=== PATIENT | female | born 1965 | race Hispanic/Latino ===

== ENCOUNTER 2017-03-09 06:09 | Emergency (ER) | payer OTHER, SELFPAY | END 2017-03-09 07:08 | disposition home or self-care (01) | LOC: ERS 06:09 | DX: J06.9 Acute upper respiratory infection, unspecified (principal); E11.9 Type 2 diabetes mellitus without complications; I10 Essential (primary) hypertension | CPT/HCPCS: 87081; 87430; 99283 ==

== ENCOUNTER 2018-06-23 06:53 | Observation (INO) | payer BC, OTHER ==
--- NOTE | 2018-06-23 07:45 | RAD ---
PORTABLE CHEST: HISTORY: Cough. FINDINGS: Lung garcia are clear. Heart and mediastinum unremarkable. IMPRESSION: No acute findings. POS: [facility]
[2018-06-23 07:52] LABS: #Lymphocytes 1.8 thou/uL (1.20-3.40); #Monocytes 0.4 thou/uL (0.11-0.59); #Neutrophils 2.8 thou/uL (1.40-6.50); %Eosinophils 0.8 % (0.0-10.0); %Lymphocytes 35.1 % (21.0-51.0); %Monocytes 8.7 % (0.0-10.0); %Neutrophils 54.5 % (42.0-75.0); Hemoglobin 13.1 g/dL (12.0-16.0); Mean Corpuscular HGB CONC 33.2 g/dL (32.0-36.0); Mean Corpuscular Hemoglobin 30.8 pg (27.0-31.0); Mean Corpuscular Volume 92.7 fL (78.0-98.0); Mean Platelet Volume 6.7 fL (7.4-10.4); Platelet Count 279 thou/uL (130-400); RBC Distribution Width 11.5 % (11.5-14.5); Red Blood Cell (RBC) Count 4.25 mill/uL (4.20-5.40); White Blood Cell (WBC) Count 5.1 thou/uL (4.8-10.8)
[2018-06-23 08:10] LABS: ALT (SGPT) 44 U/L (8-55); AST (SGOT) 46 U/L (5-34); Albumin 4.6 g/dL (3.5-5.0); Alkaline Phosphatase 123 U/L (40-150); Anion Gap 18 mmol/L (10-20); BUN (Urea Nitrogen) 9 mg/dL (9.8-20.1); Bilirubin, Total 0.7 mg/dL (0.2-1.2); Calc. Creatinine Clearance 0 mL/min (70-130); Calcium 10.5 mg/dL (7.8-10.44); Carbon Dioxide 19 mmol/L (22-29); Chloride 92 mmol/L (98-107); Estimated GFR-MDRD 89; Globulin 3.8 g/dL (2.4-3.5); Glucose 148 mg/dL (70-105); Potassium 4.6 mmol/L (3.5-5.1); Protein, Total 8.4 g/dL (6.0-8.3); Sodium 124 mmol/L (136-145)
[2018-06-23 09:44] LABS: Legionella Urinary Ag Negative (Negative)
[2018-06-23] MEDS ORDERED: Acetaminophen 500 MG TAB ONE (09:52)
[2018-06-23] MEDS ORDERED: Ibuprofen 200 MG TAB PO PRN (11:20)
[2018-06-23] MEDS ORDERED: Ondansetron ODT 4 MG TAB PO PRN (11:20)
[2018-06-23] MEDS ORDERED: Ondansetron PF 4 MG/2 ML Vial IVP PRN (11:20)
[2018-06-23] MEDS ORDERED: HumaLOG 300 UNITS/3 ML VIAL SC PRN ×2 (11:20)
[2018-06-23] MEDS ORDERED: Dextrose 50% Abboject 50 ML SYRINGE SLOW IVP PRN (11:20)
[2018-06-23] MEDS ORDERED: Loratadine 10 MG TAB PO PRN (11:20)
[2018-06-23] MEDS ORDERED: Dextrose 5% in Water 1,000 ML IV PRN (11:20)
[2018-06-23 11:36] VITALS: BMI 33.5
[2018-06-23] MEDS: Sodium Chloride 0.9% 1,000 ML IV SCH ×2 (12:07→17:01)
[2018-06-23] MEDS: Diabetic Tussin 200 MG/10 ML UDCUP PO PRN ×3 (12:09→21:13)
[2018-06-23 14:03] LABS: Lactic Acid 2.2 mmol/L (0.5-2.2)
--- NOTE | 2018-06-23 14:41 | HP ---
PRIMARY CARE PROVIDER: [facility]. CHIEF COMPLAINT: Cough and shortness of breath. HISTORY OF PRESENT ILLNESS: This is a 53-year-old female, who presents to [facility] Emergency Department complaining of 1-to 2-day history of increasing cough, shortness of breath, and low-grade fever. The patient states she was driving to work when she became increasingly short of breath with persistent dry cough and became concerned seeking medical attention in the emergency department. The patient states she had grand children, who have been sick with upper respiratory infections and believes that she may have been exposed to their illness. The patient received influenza vaccination at the beginning of the season in 2018 and denies any chronic lung conditions. The patient denied any recent travel history, exposures, or change to her chronic medication regimen. The patient does admit to some decreased appetite and activity level as well as general weakness and fatigue. The patient took abgu-ecl-iklfwnn remedies for headache and cough with minimal relief. The patient denied any coughing of blood, dysuria, diarrhea, or recent fall. In the emergency room, the patient underwent general evaluation including chest imaging showing no acute infiltrates. Metabolic screening was positive for sodium level of 124, at which point, the patient received IV fluids. The patient was also noted with mild lactic acidosis. The patient received IV Levaquin and DuoNeb therapy. The patient was referred to the Hospitalist Service for evaluation. PAST MEDICAL HISTORY: 1. Diabetes mellitus, type 2, on oral hypoglycemics. 2. Hyperlipidemia. 3. Hypertension. PAST SURGICAL HISTORY: Status post bilateral tubal ligation. CURRENT MEDICATIONS: Lisinopril, dose unknown. Metformin, dose unknown. ALLERGIES: NO KNOWN DRUG ALLERGIES. FAMILY HISTORY: Positive for diabetes mellitus. SOCIAL HISTORY: The patient is , accompanied by her in the hospital. Drinks alcohol daily, quantity unverified. No tobacco or illicit drug use. Employed locally in the [place] area. REVIEW OF SYSTEMS: CONSTITUTIONAL: Negative for weight loss or gain, ability to conduct usual activities. SKIN: Negative for rash, itching. EYES: Negative for double vision, pain. ENT/MOUTH: Negative for nose bleeding, neck stiffness, pain, tenderness. CARDIOVASCULAR: Negative for palpitations, dyspnea on exertion, orthopnea. RESPIRATORY: Negative for shortness of breath, wheezing, cough, hemoptysis, fever or night sweats. GASTROINTESTINAL: Negative for poor appetite, abdominal pain, heartburn, nausea, vomiting, constipation, or diarrhea. GENITOURINARY: Negative for urgency, frequency, dysuria, nocturia. MUSCULOSKELETAL: Negative for pain, swelling. NEUROLOGIC/PSYCHIATRIC: Negative for anxiety, depression. ALLERGY/IMMUNOLOGIC: Negative for skin rash, bleeding tendency. Otherwise, negative except as stated per HPI. PHYSICAL EXAMINATION: VITAL SIGNS: On admission; blood pressure 166/79, pulse 97, respiratory rate 20, temperature 98.1 degrees Fahrenheit, and O2 saturation 96% on room air. GENERAL APPEARANCE: This is a 53-year-old female, alert and oriented x3, pleasant, conversant, in no acute distress. HEENT: Pupils are equal, round, and reactive to light and accommodation. Extraocular muscles are intact. No scleral icterus. No conjunctival injection. Nares patent. OP is clear. Teeth in good repair. NECK: Supple. No cervical adenopathy. No thyromegaly. No carotid bruits. No JVD appreciated. Cervical spine with full active and passive range of motion. No meningeal signs noted. CHEST: Lungs are clear to auscultation bilaterally. CARDIOVASCULAR: S1 and S2 without noted murmur, rub, or gallop. ABDOMEN: Rounded, soft, nontender, and nondistended. Bowel sounds are positive in all 4 quadrants. There is no hepatosplenomegaly. No abdominal bruits. No rebound or guarding appreciated. EXTREMITIES: Warm and dry with fair turgor. No clubbing, cyanosis, or asymmetric edema appreciated. Pulses are palpable distally at the dorsalis pedis, posterior tibial, and popliteal arteries bilaterally. Capillary refill less than 2 seconds. NEUROLOGIC: Cranial nerves II through XII are grossly intact. No focal or lateralizing signs appreciated. PERTINENT LABORATORY AND X-RAY FINDINGS: Sodium 124, potassium 4.6, chloride 92, CO2 of 19, BUN 9, creatinine 0.96, estimated GFR of 89, and glucose 148. Lactic acid level 2.3, calcium 10.5, AST 46, ALT of 44, alkaline phosphatase 123, and albumin 4.6. CBC showed a white blood cell count of 5.1, hemoglobin 13.1, hematocrit 39.4, and platelet count 279. Urinary Legionella pneumophila antigen negative on 06/23/2018. Portable chest x-ray dated 06/23/2018, showed no acute cardiopulmonary process. ASSESSMENT AND PLAN: 1. Hyponatremia. Question of acute versus subacute. We will continue IV normal saline at 125 mL/h. Repeat sodium level in the a.m. Suspect multifactorial including decreased oral intake. Questionable influence of alcohol use. 2. Viral bronchitis. Suspected given the patient's presentation. We will continue general supportive management. Antitussive medications as needed. General supportive care. 3. Diabetes mellitus, type 2. Resume home regimen of metformin. Insulin sliding scale for reflexive coverage. Serial Accu-Cheks a.c. and at bedtime. ADA diet. 4. Hypertension. Confirm home blood pressure regimen. Serial blood pressure monitoring. 5. Prophylaxis. SCDs while in bed. Pepcid 20 mg p.o. b.i.d. 6. Code status: Full. Surrogate medical decision maker is the patient's spouse. Job ID: [id number]
[2018-06-23] MEDS: Acetaminophen 500 MG TAB PO PRN (17:00)
[2018-06-23] MEDS: Famotidine 20 MG TAB PO SCH (21:13)
[2018-06-24] MEDS: Sodium Chloride 0.9% 1,000 ML IV SCH ×2 (01:10→09:17)
[2018-06-24] MEDS: Diabetic Tussin 200 MG/10 ML UDCUP PO PRN ×2 (03:09→11:09)
[2018-06-24 05:33] LABS: Anion Gap 12 mmol/L (10-20); BUN (Urea Nitrogen) 8 mg/dL (9.8-20.1); Calc. Creatinine Clearance 131 mL/min (70-130); Calcium 9.2 mg/dL (7.8-10.44); Carbon Dioxide 22 mmol/L (22-29); Chloride 101 mmol/L (98-107); Estimated GFR-MDRD Greater than 90; Glucose 114 mg/dL (70-105); Potassium 4.4 mmol/L (3.5-5.1); Sodium 131 mmol/L (136-145)
[2018-06-24 05:46] LABS: Band 7 % (5-11); Eosinophils 1 % (0-10); Hemoglobin 11.6 g/dL (12.0-16.0); Lymphocytes 49 % (21-51); MDiff Complete? YES; Mean Corpuscular HGB CONC 33.9 g/dL (32.0-36.0); Mean Corpuscular Hemoglobin 32.1 pg (27.0-31.0); Mean Corpuscular Volume 94.5 fL (78.0-98.0); Mean Platelet Volume 6.9 fL (7.4-10.4); Monocytes 7 % (0-10); Neutrophil 36 % (42-75); Platelet Count 238 thou/uL (130-400); RBC Distribution Width 11.6 % (11.5-14.5); Red Blood Cell (RBC) Count 3.62 mill/uL (4.20-5.40); White Blood Cell (WBC) Count 3.7 thou/uL (4.8-10.8)
[2018-06-24] MEDS: Famotidine 20 MG TAB PO SCH (09:15)
[2018-06-24] MEDS: Acetaminophen 500 MG TAB PO PRN (11:54)
[2018-06-24] MEDS ORDERED: Lisinopril 20 MG TAB PO SCH ×2 (12:00→21:00)
[2018-06-24 12:45] VITALS: BP 176/77; TEMP 98.5
[2018-06-24] MEDS ORDERED: metFORMIN 500 MG TAB PO SCH (17:00)
[2018-06-24] MEDS ORDERED: Atorvastatin Calcium 10 MG TAB PO SCH (21:00)
--- NOTE | 2018-06-25 16:33 | EKG ---
Test Reason : DIFF BREATHING Blood Pressure : / mmHG Vent. Rate : 094 BPM Atrial Rate : 094 BPM P-R Int : 146 ms QRS Dur : 078 ms QT Int : 336 ms P-R-T Axes : 068 014 038 degrees QTc Int : 420 ms Normal sinus rhythm Normal ECG Confirmed by SHAGGY ERICKSON DO ([id number]), photograph editor ELTON FOSTER ([id number]) on 06/25/2018 4:32:51 PM Referred By: Confirmed By:SHAGGY ERICKSON DO
--- NOTE | 2018-06-26 02:09 | DIS ---
DATE OF ADMISSION: 06/23/2018 DATE OF DISCHARGE: 06/24/2018 DISCHARGE DISPOSITION: Home. FOLLOWUP: Follow up with [facility] in 1 week. Basic metabolic profile after 1 week is recommended. Primary care physician advised to follow. The patient was seen and examined on the day of discharge. Denies any new complaints. Overall symptomatically feels much better. DISCHARGE MEDICATIONS: 1. Amoxicillin 500 mg three times daily for 1 week. 2. Mucinex 600 mg twice a day for 1 week. 3. Lisinopril 20 mg b.i.d. 4. Zocor 20 mg q.p.m. 5. Metformin 1000 mg b.i.d. 6. Hydrochlorothiazide has been discontinued. BRIEF HOSPITAL COURSE: The patient is a 53-year-old female with diabetes mellitus type 2; hypertension, on hydrochlorothiazide, presented to the hospital with cough and shortness of breath. A workup was consistent with acute bronchitis along with hyponatremia with sodium of 124. She was started on IV fluids along with nebulizer treatment with good improvement. On the day of discharge, her sodium is 131. Hydrochlorothiazide will be discontinued. Due to acute sinusitis, she has been started on amoxicillin. She appears stable for discharge. FINAL DIAGNOSES: 1. Hypotonic hyponatremia, resolved. 2. Acute bronchitis, suspected viral. 3. Acute sinusitis, started on amoxicillin. 4. Diabetes mellitus type 2. 5. Hypertension. 6. Obesity with a BMI of 33.7. 7. Metabolic acidosis/lactic acidosis secondary to dehydration, resolved. SIGNIFICANT LABORATORY DATA: Blood cultures negative. Sodium on the day of discharge 131, on admission 124. Lactic acid 2.3. Troponin negative. Urine for Legionella pneumonia is negative. Chest x-ray was negative for infiltrate. Job ID: [id number]
== END 2018-06-24 13:41 | disposition home or self-care (01) ==
LOC: ERS 06:53 → 2SW 09:54
PROVIDERS: ADMIT Family Medicine; ATTEND Family Medicine
DX: E87.1 Hypo-osmolality and hyponatremia (principal); J20.9 Acute bronchitis, unspecified; J01.90 Acute sinusitis, unspecified; E11.9 Type 2 diabetes mellitus without complications; I10 Essential (primary) hypertension; E86.0 Dehydration; E87.2 Acidosis; E66.9 Obesity, unspecified; Z68.33 Body mass index [BMI] 33.0-33.9, adult; Z79.899 Other long term (current) drug therapy; Z79.84 Long term (current) use of oral hypoglycemic drugs
CPT/HCPCS: 36415; 36416; 71045; 80048; 80053; 83605; 84484; 85007; 85025; 85027; 87040; 87899; 93005; 94640; 96361; 96365; 96375; G0378; J1956; J2405; J7620

== ENCOUNTER 2018-07-17 17:38 | Emergency (ER) | payer BC ==
[2018-07-17 18:24] LABS: Hemoglobin 12.8 g/dL (12.0-16.0); Mean Corpuscular HGB CONC 34.2 g/dL (32.0-36.0); Mean Corpuscular Hemoglobin 32.6 pg (27.0-31.0); Mean Corpuscular Volume 95.2 fL (78.0-98.0); Mean Platelet Volume 7.6 fL (7.4-10.4); Platelet Count 245 thou/uL (130-400); RBC Distribution Width 11.5 % (11.5-14.5); Red Blood Cell (RBC) Count 3.91 mill/uL (4.20-5.40); White Blood Cell (WBC) Count 7.8 thou/uL (4.8-10.8)
--- NOTE | 2018-07-17 18:30 | RAD ---
FExam: Chest 2 views HISTORY:Dyspnea Comparison: 09/03/2015 FINDINGS: Lungs: No masses or consolidation. Cardiac silhouette: Normal size Pulmonary vessels: Normal Pleural Spaces: Clear Pneumothorax: None Osseous abnormalities: None of acuity. IMPRESSION: No focal consolidation.
[2018-07-17 18:35] LABS: ALT (SGPT) 26 U/L (8-55); AST (SGOT) 24 U/L (5-34); Albumin 4.5 g/dL (3.5-5.0); Alkaline Phosphatase 111 U/L (40-150); Anion Gap 16 mmol/L (10-20); BUN (Urea Nitrogen) 13 mg/dL (9.8-20.1); Bilirubin, Total 0.7 mg/dL (0.2-1.2); Calc. Creatinine Clearance 0 mL/min (70-130); Calcium 9.7 mg/dL (7.8-10.44); Carbon Dioxide 23 mmol/L (22-29); Chloride 98 mmol/L (98-107); Estimated GFR-MDRD 67; Globulin 3.4 g/dL (2.4-3.5); Glucose 105 mg/dL (70-105); Potassium 3.6 mmol/L (3.5-5.1); Protein, Total 7.9 g/dL (6.0-8.3); Sodium 133 mmol/L (136-145)
[2018-07-17 18:38] LABS: Band 1 % (5-11); Lymphocytes 56 % (21-51); MDiff Complete? YES; Monocytes 4 % (0-10); Neutrophil 37 % (42-75); Platelet Morphology Comment Appears Adequate; RBC Morphology Normal; Reactive Lymphocytes 2 % (0-10)
[2018-07-17] MEDS ORDERED: Lorazepam 2 MG/ML VIAL ONE (18:49)
[2018-07-17] MEDS ORDERED: Acetaminophen 500 MG TAB ONE (19:50)
[2018-07-17] MEDS ORDERED: Labetalol HCl 100 MG/20 ML VIAL ONE (20:03)
[2018-07-17 22:45] LABS: Troponin I 0.011 ng/mL (< 0.028)
--- NOTE | 2018-07-23 13:53 | EKG ---
Test Reason : Blood Pressure : / mmHG Vent. Rate : 075 BPM Atrial Rate : 075 BPM P-R Int : 158 ms QRS Dur : 080 ms QT Int : 366 ms P-R-T Axes : 052 011 037 degrees QTc Int : 408 ms Normal sinus rhythm Normal ECG Confirmed by PEARL GONSALEZ DO ([id number]), purchasing expeditor ELTON FOSTER ([id number]) on 07/23/2018 1:52:53 PM Referred By: Confirmed By:PEARL GONSALEZ DO
== END 2018-07-17 23:00 | disposition home or self-care (01) ==
LOC: ERS 17:38
DX: R06.02 Shortness of breath (principal); E11.9 Type 2 diabetes mellitus without complications; I10 Essential (primary) hypertension; E78.00 Pure hypercholesterolemia, unspecified; Z79.84 Long term (current) use of oral hypoglycemic drugs
CPT/HCPCS: 71046; 80053; 83880; 84484; 85025; 85379; 93005; 96374; 96375; J2060

== ENCOUNTER 2018-08-06 14:09 | Emergency (ER) | payer BC ==
[2018-08-06 15:44] LABS: #Basophils 0.1 thou/uL (0.0-0.2); #Eosinphils 0.1 thou/uL (0.0-0.7); #Lymphocytes 2.7 thou/uL (1.20-3.40); #Monocytes 0.5 thou/uL (0.11-0.59); #Neutrophils 5.3 thou/uL (1.40-6.50); %Basophils 1.1 % (0.0-1.0); %Eosinophils 1.5 % (0.0-10.0); %Lymphocytes 31.2 % (21.0-51.0); %Monocytes 5.8 % (0.0-10.0); %Neutrophils 60.4 % (42.0-75.0); Hemoglobin 13.6 g/dL (12.0-16.0); Mean Corpuscular HGB CONC 33.9 g/dL (32.0-36.0); Mean Corpuscular Hemoglobin 32.3 pg (27.0-31.0); Mean Corpuscular Volume 95.4 fL (78.0-98.0); Mean Platelet Volume 7.1 fL (7.4-10.4); Platelet Count 295 thou/uL (130-400); RBC Distribution Width 11.7 % (11.5-14.5); Red Blood Cell (RBC) Count 4.22 mill/uL (4.20-5.40); White Blood Cell (WBC) Count 8.8 thou/uL (4.8-10.8)
--- NOTE | 2018-08-06 15:51 | RAD ---
Portable chest: HISTORY: Hand numbness COMPARISON: none FINDINGS: Lung garcia are clear. Heart and mediastinum appear unremarkable. Vascularity is normal. Visualized osseous structures unremarkable. IMPRESSION: No acute finding
[2018-08-06 16:04] LABS: ALT (SGPT) 24 U/L (8-55); AST (SGOT) 23 U/L (5-34); Albumin 4.8 g/dL (3.5-5.0); Alkaline Phosphatase 111 U/L (40-150); Anion Gap 14 mmol/L (10-20); BUN (Urea Nitrogen) 12 mg/dL (9.8-20.1); Bilirubin, Total 0.8 mg/dL (0.2-1.2); Calc. Creatinine Clearance 0 mL/min (70-130); Calcium 9.9 mg/dL (7.8-10.44); Carbon Dioxide 24 mmol/L (22-29); Chloride 100 mmol/L (98-107); Estimated GFR-MDRD 84; Globulin 3.7 g/dL (2.4-3.5); Glucose 137 mg/dL (70-105); Potassium 4.6 mmol/L (3.5-5.1); Protein, Total 8.5 g/dL (6.0-8.3); Sodium 133 mmol/L (136-145)
[2018-08-06] MEDS ORDERED: Aspirin Chewable 81 MG TAB ONE (16:55)
--- NOTE | 2018-08-06 19:52 | CT ---
CT BRAIN WITHOUT CONTRAST: HISTORY:Numbness hands, difficulty speaking COMPARISON:11/07/2011 FINDINGS: No evidence of acute infarct, hemorrhage, midline shift or abnormal extra-axial fluid collections is seen. The ventricular size is appropriate and the basilar cisterns are patent. The bony calvarium is intact. The visualized paranasal sinuses and mastoid air cells are well aerated. IMPRESSION: No CT evidence of acute intracranial process.
== END 2018-08-06 20:30 | disposition home or self-care (01) ==
LOC: ERS 14:09
DX: I10 Essential (primary) hypertension (principal); R20.2 Paresthesia of skin; E11.9 Type 2 diabetes mellitus without complications; E78.00 Pure hypercholesterolemia, unspecified; Z79.84 Long term (current) use of oral hypoglycemic drugs; Z79.899 Other long term (current) drug therapy
CPT/HCPCS: 36415; 70450; 71045; 80053; 84484; 85025; 93005; 94760